=== PATIENT | female | born 1980 | race Two or more races ===

== ENCOUNTER → 2016-05-01 | Outpatient (CLI) | payer MEDICAID ==
[~2016-05-01] MED LIST: ATEN-60
== END | disposition home or self-care (01) ==
LOC: Rad HDHVI 12:37
PROVIDERS: ATTEND Internal Medicine Cardiovascular Disease
DX: I61.1 Nontraumatic intracerebral hemorrhage in hemisphere, cortical (principal); I34.2 Nonrheumatic mitral (valve) stenosis; I10 Essential (primary) hypertension
CPT/HCPCS: 93306

== ENCOUNTER → 2016-05-06 | Outpatient (CLI) | payer MEDICAID ==
[~2016-05-06] MED LIST changes: +IOHEXOL 350 MG/ML 100ML IJ ONE
[2016-05-06 10:50] VITALS: BP 151/87
[2016-05-06 11:45] VITALS: BP 134/86
== END | disposition home or self-care (01) ==
LOC: Rad HDHVI 10:41
PROVIDERS: ATTEND Internal Medicine Cardiovascular Disease
DX: Z01.818 Encounter for other preprocedural examination (principal); I10 Essential (primary) hypertension; M47.899 Other spondylosis, site unspecified; N20.0 Calculus of kidney; E66.01 Morbid (severe) obesity due to excess calories; I34.2 Nonrheumatic mitral (valve) stenosis; I70.1 Atherosclerosis of renal artery
CPT/HCPCS: 74175; G0463; Q9967; 96374

== ENCOUNTER 2023-11-24 23:57 | Emergency (ER) | payer MEDICAID ==
[~2023-11-24] VITALS: Ht 167.6 cm; Wt 133.4 kg
[~2023-11-24 23:57] MED LIST changes: -IOHEXOL 350 MG/ML 100ML IJ ONE
[2023-11-25 00:32] LABS: Urine Bacteria None Seen /hpf (None Seen)
[2023-11-25 00:46] LABS: Urine Blood Negative /uL (Negative); Urine Clarity Turbid (Clear); Urine Color Light-Yellow (Yellow); Urine Protein, UAD Negative (Negative); Urine Specific Gravity 1.021 (1.001-1.035); Urine Urobilinogen Normal (Negative); Urine WBC 12 /hpf (0 - 5)
[2023-11-25] MEDS ORDERED: ZOFR4T SL (03:06)
[2023-11-25] MEDS ORDERED: DOCU-94 PO (03:06)
[2023-11-25] MEDS ORDERED: LEVO500T91 PO (03:25)
[2023-11-25] MEDS ORDERED: HYDR-4798 PO (03:25)
[2023-11-25 03:40] VITALS: BP 129/82; RESP 16; TEMP 99; O2SAT 96
[2023-11-25 03:41] VITALS: PULSE 69
[2023-11-25] MEDS: HYDROcodone-ACET 10/325MG TAB PO ONE (03:49)
[2023-11-25] MEDS: ONDANSETRON ODT 4 MG TAB PO ONE (03:50)
== END 2023-11-25 | disposition home or self-care (01) ==
LOC: ER 11-25 00:08
DX: K42.9 Umbilical hernia without obstruction or gangrene (principal); N39.0 Urinary tract infection, site not specified; E65 Localized adiposity; I10 Essential (primary) hypertension
CPT/HCPCS: 81001; 99283; Q0162

== ENCOUNTER 2024-07-25 07:02 | Emergency (ER) | payer MEDICAID ==
[~2024-07-25] VITALS: Ht 165.1 cm; Wt 111.0 kg
[~2024-07-25 07:02] MED LIST changes: +DOCU-94 PO; +HYDR-4798 PO; +LEVO500T91 PO; +ZOFR4T SL
[2024-07-25 07:38] VITALS: BP 135/99; PULSE 84; RESP 16; TEMP 97.3; O2SAT 98
--- NOTE | 2024-07-25 07:46 | ED.PDOC ---
Musculoskeletal HPI Comments 44-year-old female with no MHx presents for a possible fracture to the right lateral hip Injury occurred two days ago after she missed a step while attending a sudden chair Complaint of sudden pain to the lateral aspect of the hip. Currently pain worsens with sitting and improves with ambulation Takes 800 mg of ibuprofen with minimal improvement No other complaint or concern Denies hitting her head. Denies fractures. Chief Complaint: Lower Extremity Time Seen by MD: 07:26 Primary Care Provider: Ellen Israel Notes: Nurses Notes, Medications, Allergies Allergies: Coded Allergies: NO KNOWN ALLERGIES (Unverified , 09/08/11) Home Meds Active Scripts Hydrocodone-Acetaminophen (Hydrocodone Bitartrate/AC 10-325 mg) 1 Tab Tab, 1 TAB PO QIDPRN, #20 TAB Prov:ELSA JAMA MD 11/25/23 Levofloxacin Hemihydrate (LEVAQUIN 500 MG) 500 Mg Tab, 1 TAB PO DAILY, #7 TAB Prov:ELSA JAMA MD 11/25/23 Ondansetron Odt 4MG Tab (ZOFRAN PO) 4 Mg Tb, 4 MG SL QIDPRN, #20 TAB ODT TAB-DISSOLVE IN MOUTH, THEN SWALLOW Prov:ELSA JAMA MD 11/25/23 Docusate Sodium (Colace) 100 Mg Cap, 1 CAP PO BID, #60 CAP 2 Refills Prov:ELSA JAMA MD 11/25/23 Ondansetron Odt 4MG Tab (ZOFRAN PO) 4 Mg Tb, 4 MG SL QIDPRN, #20 TAB ODT TAB-DISSOLVE IN MOUTH, THEN SWALLOW Prov:ELSA JAMA MD 11/25/23 Docusate Sodium (Colace) 100 Mg Cap, 1 CAP PO BID, #60 CAP 2 Refills Prov:ELSA JAMA MD 11/25/23 Reported Medications [[id number] Mg] (Atenolol) 25 MG TAB No Conflict Check, MG 08/26/12 Information Source: Patient Mode of Arrival: Ambulatory Past Medical History PAST MEDICAL HISTORY: HTN, Denies Surgical History: Denies all surgeries WRAP CHECKER History: No Pertinent WRAP CHECKER History Family History Family History: Reviewed,noncontributory to illness, Unobtainable Social History Smoker: Non-Smoker Alcohol: Denies ETOH Use Drugs: Denies Drug Use Lives In: Home All Other Systems: Reviewed and Negative (per hpi) Physical Exam General Appearance: No Apparent Distress, Normal HEENT: Normal ENT Inspection, Pharynx Normal, TMs Normal Neck: Full Range of Motion, Non-Tender, Normal, Normal Inspection Respiratory: Chest Non-Tender, Lungs Clear, No Accessory Muscle Use, No Respiratory Distress, Normal Breath Sounds Cardiovascular: No Edema, No JVD, No Murmur, No Gallop, Normal Peripheral Pulses, Regular Rate/Rhythm Breast Exam: Deferred Gastrointestinal: No Organomegaly, Non Tender, No Pulsatile Mass, Normal Bowel Sounds, Soft Genitalia: Deferred Pelvic: Deferred Rectal: Deferred Extremities: No calf tenderness, Normal capillary refill, Normal inspection, Normal range of motion, Non-tender, No pedal edema Musculoskeletal : Apperance: Normal Neurologic: Alert, telephone station installer II-XII nml as Tested, No Motor Deficits, Normal Affect, Normal Mood, No Sensory Deficits Cerebellar Function: Normal Reflexes: Normal Skin: Dry, Normal Color, Warm Lymphatic: No Adenopathy Was a procedure done? Was a procedure done?: No Images 1 - Localized tenderness to palpation. No ecchymosis no open wounds. Straight leg raise test positive. Distal neuro sensation intact Differential Diagnosis EXT Differential Diagnosis: Fracture, Sprain, Dislocation X-Ray, Labs, Meds, VS Vital Signs Date Time Temp Pulse Resp B/P (MAP) Pulse Ox O2 Delivery O2 Flow Rate FiO2 07/25/24 07:38 84 16 98 Room Air 07/25/24 07:38 97.3 84 16 135/99 (111) 98 97.3 07/25/24 07:26 97.3 84 16 135/99 (111) 98 97.3 PATIENT: CHRISTIANO MENDOZAACCT: [id number]: [id number] : 1980 LOC: ER ROOM / BED: / AGE / SEX: 44 / F ADM STATUS: REG ER SERVICE [id number] ORDERING PHYSICIAN: MOHINI RUIZ NP PROCEDURE(s): RHIP - R HIP COMPLETE XRAY REASON: fall. r/o fracture ORDER NUMBER(s): [id number], ACCESSION NUMBER(s): [id number] EXAM: XY R HIP COMPLETE XRAY CLINICAL INDICATION: fall. r/o fracture TECHNIQUE: XY R HIP COMPLETE XRAY. 2 view Comparison: None FINDINGS/IMPRESSION: There is no evidence of acute fracture or dislocation. The visualized joint space is well maintained. The alignment is anatomical. There is no radiopaque foreign body. ATED BY: DEO HEART MD DICTATED DATE/TIME: 07/25/24843 SIGNED BY: DEO HEART MD SIGNED DATE/TIME: 07/25/24843 CC: X-Ray, Labs, Meds, VS Comment Presentation most consistent with nonemergent musculoskeletal etiology versus nonemergent disc herniation. ED workup: Defer further imaging and lab work for outpatient follow up at this time Disposition: Discharge. Strict return precautions discussed with the patient with full understanding. Supportive care advised (rest, ice, heat, NSAIDs, stretching exercises) Massage muscles with cold pack or ice for 20 minutes 4 times per day. Usually most useful if there is swelling during the first 48 hours Heating pad on the most painful area for 20 minutes to relieve muscle spasm Sleep and the most comfortable sleeping position (usually on the side with knees bent) Light stretching, no strenuous activity, avoid frequent bending, avoid carrying heavy objects Discussed possible benefits of yoga and acupuncture Return precautions discussed including Inability to walk/bear weight Paresthesia/weakness/leg pain Fecal/urinary incontinence Any worsening symptoms Time of 1ST Reevaluation: 07:46 Reevaluation 1ST: Improved Patient Education/Counseling: Diagnosis, Treatment Family Education/Counseling: Diagnosis, Treatment Departure 1 Departure Time of Disposition: 08:51 Impression: Primary Impression: Lumbar radiculopathy Disposition: 01 HOME / SELF CARE / HOMELESS Condition: Stable e-Prescriptions Naproxen (Naproxen) 500 Mg Tab 500 MG PO BIDPC for 10 Days, #20 TAB 0 Refills Prov: MOHINI RUIZ NP 07/25/24 Discharged With: Self Critical Care Note Critical Care Time?: No Stability Stability form required: No Heart Score Heart Score: Heart Score Response (Comments) Value History N/A 0 EKG N/A 0 Age N/A 0 Risk Factors N/A 0 Troponin N/A 0 Total 0 MOHINI RUIZ NP Jul 25, 2024 07:46
--- NOTE | 2024-07-25 08:46 | DVH ---
EXAM: XY R HIP COMPLETE XRAY CLINICAL INDICATION: fall. r/o fracture TECHNIQUE: XY R HIP COMPLETE XRAY. 2 view Comparison: None FINDINGS/IMPRESSION: There is no evidence of acute fracture or dislocation. The visualized joint space is well maintained. The alignment is anatomical. There is no radiopaque foreign body.
[2024-07-25] MEDS ORDERED: NAPR-746 PO (08:51)
== END 2024-07-25 09:04 | disposition home or self-care (01) ==
LOC: ER 07:02
DX: M54.16 Radiculopathy, lumbar region (principal); I10 Essential (primary) hypertension; Z79.899 Other long term (current) drug therapy
CPT/HCPCS: 73502